=== PATIENT | male | born 1945 | race Caucasian/White ===

== ENCOUNTER 2023-09-28 23:28 | Inpatient (IN) | payer MEDICARE, OTHER ==
[2023-09-29] MEDS ORDERED: ONDANSETRON 4 MG/2 ML VIAL IVP PRN (02:25)
[2023-09-29] MEDS ORDERED: IPRATROPIUM 0.2 MG/ML NEB INH PRN (02:25)
[2023-09-29] MEDS ORDERED: ALBUTEROL NEB 2.5 MG/3 ML INH PRN (02:25)
[2023-09-29] MEDS ORDERED: ACETAMINOPHEN 325 MG TABLET PO PRN ×2 (02:25→11:50)
[2023-09-29] MEDS ORDERED: SODIUM CHLORIDE FLUSH 0.9% 10 ML SYRINGE IVP PRN (02:25)
[2023-09-29] MEDS: SODIUM CHLORIDE FLUSH 0.9% 10 ML SYRINGE IVP PRN ×2 (02:30→20:39)
[2023-09-29 02:50] LABS: BASOPHILS % (AUTO) 0.4 %; HCT - HEMATOCRIT 20.3 % (42.0-52.0); LYMPHOCYTES % (AUTO) 3.8 %; MEAN CORPUSCULAR HEMOGLOBIN 33.5 pg (27.0-31.0); MEAN CORPUSCULAR VOLUME 98.5 fL (80.0-94.0); MONOCYTES % (AUTO) 13.6 %; NEUTROPHILS % (AUTO) 80.1 %; RED BLOOD COUNT 2.06 10^6/uL (4.70-6.10); WHITE BLOOD COUNT 2.4 x10^3/uL (4.8-10.8)
[2023-09-29 02:54] LABS: HGB - HEMOGLOBIN 6.9 g/dL (14.0-18.0)
[2023-09-29 02:55] LABS: ABNORMAL LYMPHS % (MANUAL) 0 %; PLT - PLATELET COUNT 13 10^3/uL (130-450)
[2023-09-29 03:05] LABS: ALBUMIN 2.4 g/dL (3.2-5.5); BILIRUBIN,TOTAL 1.2 mg/dL (0.2-1.0); CALCIUM 8.1 mg/dL (8.5-10.3); CREATININE 0.9 mg/dL (0.6-1.3); MAGNESIUM 1.8 mg/dL (1.7-2.3); POTASSIUM 4.3 mmol/L (3.5-4.5); TOTAL PROTEIN 3.6 g/dL (6.4-8.9)
[2023-09-29 03:10] LABS: BAND NEUTROPHILS % (MANUAL) 11 %; LYMPHOCYTES # (MANUAL) 0.2 10^3/uL (1.5-3.5); LYMPHOCYTES % (MANUAL) 10 %; MONOCYTES # (MANUAL) 0.2 10^3/uL (0.0-1.0); NEUTROPHILS # (MANUAL) 1.9 10^3/uL (1.5-6.6)
[2023-09-29 03:11] LABS: DIFFERENTIAL COMMENT MANUAL DIFFERENTIAL; PLATELET ESTIMATE, MANUAL DECREASED (<130,000) (NORMAL)
--- NOTE | 2023-09-29 03:18 | PROVIDER PROGRESS NOTE ---
Tool And Die Inspector Note - Tool And Die Inspector Note Tool And Die Inspector Note: Admit Pending In brief, 78 yo M with history of MDS s/p BMT. Unfortunately I do not have access to his records for further information. [facility] requiring blood transfusion, Hgb 6.2. Repeat labs here show Hgb 6.9 - ordered 1 U PRBC leukoreduced/irradiated. He received IV vancomycin and IV cefepime at outside hospital, continue for now, follow up cultures. Gentle IV fluid hydration. Currently vital signs stable, on 2 L NC. Afebrile. Last Vital Signs Temp 36.7 C 09/29/23 03:00 Pulse 70 09/29/23 03:00 Resp 12 09/29/23 03:00 BP 122/69 09/29/23 03:00 Pulse Ox 93 09/29/23 03:00 O2 Flow Rate 2 09/29/23 03:00 Further details pending admit H&P.
[2023-09-29] MEDS ORDERED: VANCOMYCIN INJ 1.75 GM in SODIUM CHLORIDE 0.9% 500 ML IV SCH (04:00)
[2023-09-29 06:27] LABS: MAGNESIUM 1.7 mg/dL (1.7-2.3); PHOSPHORUS 4.1 mg/dL (2.5-5.0)
[2023-09-29 06:31] LABS: CALCIUM, IONIZED 1.13 mmol/L (1.15-1.33); VBG PH 7.461 (7.31-7.41)
[2023-09-29] MEDS: MAGNESIUM SULFATE 2 GRAM 2 GM/50 ML BAG IV ONE (07:02)
[2023-09-29] MEDS: CEFEPIME 2 GM in SODIUM CHLORIDE 0.9% MINIBAG 100 ML IV SCH (09:03)
[2023-09-29] MEDS: PANTOPRAZOLE 40 MG VIAL IVP SCH (09:03)
[2023-09-29] MEDS: SODIUM CHLORIDE FLUSH 0.9% 10 ML SYRINGE IVP SCH ×2 (10:14→18:52)
--- NOTE | 2023-09-29 12:45 | HISTORY & PHYSICAL EXAMINATION ---
Chief Complaint - Chief Complaint Chief Complaint: I need oxygen History of Present Illness - Admitted From Admitted From:: [facility] Emergency Department - History Obtained From Records Reviewed: [facility] ED documentation History obtained from: Patient Exam Limitations: None - History of Present Illness HPI Comment/Other: Mr. Cornelius is a 78 year old gentleman with history of prostate cancer (T1c, PSA 5.3, Lee Ann 3+3) along with MDS s/p BMT May 19, 2023 who presents with shortness of breath and hypoxia. He currently follows with Dr. Gustafson of [facility] in [place] for hematology/oncology and also follows closely with the [facility] after his bone marrow transplant. He ultimately underwent allo-BMT on May 19, 2023 for his progressive MDS. His posttransplant course was complicated by acute gut ejakz-emudop-dudx disease requiring high-dose prednisone and immunosuppression with Jakafi and cyclosporine. 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 Since undergoing his BMT, he has had ongoing issues with being transfusion dependent, along with chronic hypomagnesemia requiring intermittent magnesium infusions as an outpatient. On August 27 he also had an IgG level of 218 thus was given IVIG at that time. He does have chronic orthostasis requiring midodrine as well. He currently is on a prolonged prednisone taper for his acute gut GVHD, along with Jakafi and cyclosporine for immunosuppression. His current issue started recently when he was at his outpatient infusion center yesterday to receive an IV magnesium infusion. There he started to develop mild shortness of breath and was noted to be hypoxic in the 80s. Per documentation, a chest x-ray at the infusion center was concerning for fluid overload and he was given IV Lasix 20 mg. He required 3 L of oxygen to maintain saturation of 88 to 90%. There were plans to obtain home oxygen at that time however [place], home oxygen tanks and supplies were not deliverable. He was sent to the emergency department for further evaluation. At the [facility] Emergency Department in Thursday, he was noted to be afebrile with normal vital signs aside from requiring 3 to 4 L of oxygen to maintain appropriate saturations. His lactic acid was noted to be elevated to 4.6 and he was given IV fluids with improvement of his lactic acid to normal. His labs showed a creatinine of 1.47 with a CO2 of 17 and an anion gap of 16. His WBC was 2.6, hemoglobin 6.2, platelet count 12. His COVID, RSV and influenza testing were negative. A CT of his abdomen showed small pockets of fluid consistent with trace ascites but was not large enough for sampling. A CTA of his chest showed no evidence for pulmonary embolism and the lungs were clear bilaterally with a small left pleural effusion and trace right pleural effusion. Because of his lactic acidosis he was given empiric IV vancomycin and cefepime, though there was no obvious infectious source. As they were unable to secure home oxygen therapy [place] the [place], he was transferred to [facility] for further care and management. History - Past Medical History Cardiovascular: reports: Arrhythmia Respiratory: reports: Pneumonia, Sleep apnea Neuro: reports: None Endocrine/Autoimmune: reports: None GI: reports: Chronic diarrhea : reports: Benign prostate hypertrophy Psych: reports: None Musculoskeletal: reports: Osteoarthritis Derm: reports: None Other Past Medical History: cervical spinal stenosis, RAVIN, ED, hypomagnesemia - Past Surgical History General: reports: Colonoscopy - Family & Social History Family History: Other family: Hypertension - Substance History Use: Uses substance without health or social issues: NONE Meds/Allgy - Home Medications Home Medications: Ambulatory Orders Medication Instructions Recorded Confirmed Beclomethasone Dipropionate [Qvar 10.6 gm IH 09/29/23 Redihaler (40 mcg)] Budesonide [Budesonide EC] 3 mg PO 09/29/23 Ray Cit/Mag/D3/Zn/Fire Eater/Yuri/Bor 1 each PO 09/29/23 [Citracal-Vit D + Magnesium Tab] Cyclosporine, Modified 25 mg PO 09/29/23 [Cyclosporine Modified] Cyclosporine, Modified 100 mg PO 09/29/23 [Cyclosporine Modified] Dapsone 25 mg PO UD 09/29/23 09/29/23 Lipase/Protease/Amylase [Creon Dr 1 each PO PRN PRN 09/29/23 09/29/23 36,000 Units Capsule] Midodrine HCl 5 mg PO TID 09/29/23 09/29/23 Posaconazole [Noxafil] 300 mg PO UD 09/29/23 09/29/23 Ruxolitinib Phosphate [Jakafi] 10 mg PO BID 09/29/23 09/29/23 Ursodiol [Angelica] 1,000 mg PO UD 09/29/23 09/29/23 valACYclovir [Valtrex] 1,000 mg PO BID 09/29/23 09/29/23 - Allergies Allergies/Adverse Reactions: Allergies Allergy/AdvReac Type Severity Reaction Status Date / Time No Known Drug Allergies Allergy Verified 09/29/23 02:15 Review of Systems - Constitutional Constitutional: reports: Fatigue, Weakness, Weight loss - Eyes Eyes: denies: Blurred vision - Ears, Nose & Throat Ears, Nose & Throat: denies: Ear pain, Hearing loss - Cardiovascular Cariovascular: denies: Irregular heart rate, Palpitations, Chest pain, Syncope - Respiratory Respiratory: reports: SOB with exertion. denies: Cough, Wheezing, SOB at rest, Pleuritic pain - Gastrointestinal Gastrointestinal: reports: Diarrhea. denies: Abdominal pain, Bloody stools, Vomiting, Reflux/heartburn - Genitourinary Genitourinary: denies: Dysuria, Frequency - Musculoskeletal Musculoskeletal: denies: Muscle pain - Integumentary Integumentary: denies: Lesions - Neurological Neurological: denies: Focal weakness, Headache, Numbness - Psychiatric Psychiatric: denies: Suicidal, Hallucinations - Endocrine Endocrine: denies: Polyphagia - Hematologic/Lymphatic Hematologic/Lymphatic: reports: Anemia, Petechiae, Bleeding tendencies. denies: Blood clots Exam - Vital Signs Vital Signs: Vital Signs x48h Temp Pulse Resp BP Pulse Ox O2 Flow Rate 09/29/23 12:07 37.2 C 93 14 96/56 L 92 4 09/29/23 11:11 37.1 C 81 11 L 99/57 L 92 4 09/29/23 11:09 37.1 C 95 19 99/57 L 91 L 6 09/29/23 11:00 37.0 C 98 20 94/53 L 91 L 4 09/29/23 10:51 36.6 C 94 13 90/49 L 92 6 09/29/23 09:00 82 14 109/68 91 L 4 09/29/23 08:26 37.1 C 78 12 113/75 91 L 4 09/29/23 07:28 6 09/29/23 07:00 37.0 C 69 12 118/68 91 L 4 09/29/23 05:00 36.7 C 69 14 113/81 H 92 4 - Physical Exam General Appearance: positive: No acute distress, Alert, Other (Appears chronically ill and older than stated age, but no acute distress) Eyes Bilateral: positive: Normal inspection, PERRL, EOMI ENT: positive: ENT inspection nml, Pharynx nml, No signs of dehydration Neck: positive: Nml inspection, Thyroid nml, No JVD Respiratory: positive: Chest non-tender, No respiratory distress, Breath sounds nml. negative: Wheezes, Rales, Rhonchi Cardiovascular: positive: Regular rate & rhythm, No murmur, No gallop. negative: JVD present Peripheral Pulses: positive: 2+ Abdomen: positive: Non-tender, No organomegaly, Nml bowel sounds, No distention. negative: Tenderness, Guarding, Rebound Back: positive: Nml inspection. negative: CVA tenderness (R), CVA tenderness (L) Skin: positive: No rash, Warm, Dry, Pallor Extremities: positive: Non-tender, Full ROM, Other (3-4+ edema bilaterally) Neurologic/Psychiatric: positive: Oriented x3, CN's nml (2-12), Motor nml, Sensation nml Sepsis Event Note (H) - Evaluation Current Stage of Sepsis: Ruled out Conclusion/Plan - Problem List (1) Acute respiratory failure with hypoxia Conclusion/Plan: His hypoxia was first noted in the outpatient infusion center where he was receiving his chronic magnesium infusion. A chest x-ray at that time apparently showed findings concerning for pulmonary edema and he was given 20 mg of IV Lasix. I am unable to view these results or images. In the emergency department prior to transfer the CTA of the chest was negative for pulmonary embolism but also showed clear lungs aside from a trace right pleural effusion and small left pleural effusion. These effusions are likely not large enough to cause any significant hypoxia. There are no groundglass opacities on the CT scan that would be concerning for pneumonitis (infectious versus organizing p neumonia versus other interstitial disorders), making those less likely as a cause. He has no fevers or cough as well. He does have significant peripheral edema in his lower extremities as well as upper extremities, thus fluid related issues are certainly possible. He apparently had a normal echocardiogram in March 2023. -Continue supplemental oxygen. -Will place on 40 mg IV Lasix daily. -Obtain TTE to evaluate for any interval change since his bone marrow transplant. -Check blood cultures, procalcitonin, ESR, CRP, BNP. -Will reach out to his transplant team at the [facility] to determine next steps. (2) MDS (myelodysplastic syndrome) Conclusion/Plan: Initially started to develop anemia and thrombocytopenia in 2019 and ultimately underwent bone marrow biopsy in May 2022 which confirmed myelodysplastic syndrome. He was started on therapy (Vidaza) at that time but remained transfusion dependent and ultimately underwent allogenic bone marrow transplantation on 05/19/2023 through the [facility]. 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 He has remained transfusion dependent after the transplant likely due to ABO mismatch of patient blood with donor subtype, though this is favored to improve over time. -Current transfusion threshold per oncology is hematocrit less than 26% and platelet less than 10,000. -Received 1 unit of PRBC this morning due to hemoglobin of 6.2 in the emergency department and hemoglobin 6.9 here. -Typically receives 20mg IV lasix with each unit of PRBC transfusion. -No signs of active bleeding at this time. -Will resume his home prednisone, Jakafi and cyclosporine. 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 -His current anemia appears to be his baseline. I am unclear what his baseline thrombocytopenia typically looks like. -Transfuse for hemoglobin less than 26% or platelet count less than 10,000. -Repeat CBC after blood transfusion. 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 In June 2023 he developed with anorexia, weight loss and diarrhea and ultimately underwent EGD with biopsy showing moderate to severe dyvdh-xcgply-otwc disease in the duodenum and severe sobpu-ipmxcu-mpqy disease in the stomach and colon. He was placed hide dose steroid therapy without significant improvement and he required addition of both Jakafi and cyclosporine. He is currently now on a prednisone taper after improving with therapy. -Resume home Jakafi 10 mg twice daily along with cyclosporine. He is also on ursodiol for biliary support. -Continue prednisone. 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 -Resume pancrelipase supplementation with meals. (6) Bone marrow replaced by transplant Conclusion/Plan: Please see documentation noted above regarding his MDS, ufazx-pmkunu-exdm disease and pancytopenia. (7) Prostate cancer Conclusion/Plan: Has a history of BPH with urinary obstruction and previously on Flomax but this was held in the setting of orthostasis and hypotension. He also has a history of prostate cancer (T1c, PSA 5.3, Lee Ann 3+3) and he has opted for active surveillance. -Monitor for urinary retention but otherwise no acute issues at this time. (8) Hypomagnesemia Conclusion/Plan: Currently requires intermittent outpatient infusions of magnesium. -Check magnesium level and supplement if necessary. -Has been avoiding oral magnesium supplementation due to oral supplements causing diarrhea, which would worsen his gut GVHD. (9) Hypogammaglobulinemia Conclusion/Plan: Was noted to have an IgG level of 218 on August 28, 2023 and underwent IVIG infusion at the time. -No acute issues at this time. (10) Orthostasis Conclusion/Plan: Currently on midodrine therapy for intermittent orthostasis. -Resume oral midodrine. (11) RAVIN (obstructive sleep apnea) Conclusion/Plan: Has been recommended to use CPAP in the past however he does not use this currently as he typically sleeps on his side which decreases his sleep apnea. -Monitor for now. (12) Cervical spinal stenosis Conclusion/Plan: Occasionally gets paresthesias to his right shoulder. -No acute issues at this time. - Lab Results Fish Bones: 09/29/23 02:40 09/29/23 02:40 - Diagnostic Imaging Results Diagnostic Imaging Results: positive: Final report reviewed Diagnostic Imaging Results Comments: CTA Chest: 1. No evidence of pulmonary embolism bilaterally. 2. The lungs are clear bilaterally. Small left pleural effusion and trace right pleural effusion are present. 3. Small volume ascites is present in the upper abdomen. CT Abdomen/Pelvis w/o Contrast: 1. Small pockets of fluid are present adjacent to the liver, spleen, and deep within the pelvis. The small volumes of fluid are likely inaccessible to paracentesis. 2. A small left pleural effusion is present. 3. The prostate measures up to 5.4 cm in size. ECG: per my read - NSR, HR 70, normal axis and intervals, no pathologic Q-waves, no ischemic ST-TW changes, occasional PVCs. Core Measures - DVT/VTE - Prophylaxis VTE/DVT Device ordered at admit?: Yes VTE/DVT Prophylaxis med ordered at admit?: No Not Ordered - Medical Reason: Contraindicated
[2023-09-29] MEDS: LIPASE/PROTEASE/AMYLASE CAPSULE PO SCH (15:18)
[2023-09-29] MEDS: MIDODRINE 2.5 MG TABLET PO SCH (15:39)
[2023-09-29] MEDS: FUROSEMIDE 40 MG/4 ML VIAL IVP SCH (15:39)
[2023-09-29 16:04] LABS: PT - PROTHROMBIN TIME 11.3 secs (9.9-12.6)
[2023-09-29 16:05] LABS: MAGNESIUM 1.9 mg/dL (1.7-2.3)
[2023-09-29 16:11] LABS: ALBUMIN 2.6 g/dL (3.2-5.5); ALBUMIN/GLOBULIN RATIO 2.2 (1.0-2.2); BILIRUBIN,TOTAL 1.2 mg/dL (0.2-1.0); CALCIUM 8.2 mg/dL (8.5-10.3); CREATININE 1.2 mg/dL (0.6-1.3); CRP - C-REACTIVE PROTEIN 3.3 mg/dL (<0.5); PHOSPHORUS 3.5 mg/dL (2.5-5.0); POTASSIUM 3.6 mmol/L (3.5-4.5); TOTAL PROTEIN 3.8 g/dL (6.4-8.9)
[2023-09-29 16:19] LABS: PROCALCITONIN 0.54 ng/mL (<0.5)
--- NOTE | 2023-09-29 16:36 | PHARMACY PROGRESS NOTE ---
- Best Possible Medication History Admit Date and Time: 09/29/23 0041 Processed by: Pharmacy (Medication Reconciliation completed with insurance records, patient interview by [employer] Funder, Rebekah, and with paperwork from [facility] verified by pharmacist.) Medications reviewed in ED?: No Medication History completed: Yes Patient Interview: Completed Secondary Source(s): Physician records, Pharmacy records, Insurance records As the person ultimately responsible for medication therapy, providers are able to order a medication from an existing home medication list in [facility] via the "Reconcile Routine" prior to Confirmation of that medication by phlebotomy support tech. Such practice is discouraged except when the physician, in their clinical judgment, deems that a medical need exists for a medication without regard to previous use.
[2023-09-29] MEDS: valACYclovir 500 MG TABLET PO SCH (20:39)
[2023-09-29] MEDS: BUDESONIDE 3MG CAPSULES PO SCH (20:50)
[2023-09-29] MEDS: CYCLOSPORINE 125 MG PO SCH (20:51)
[2023-09-29] MEDS: VANCOMYCIN INJ 1.25 GM in SODIUM CHLORIDE 0.9% 250 ML IV SCH (21:16)
[2023-09-30 05:26] LABS: BASOPHILS % (AUTO) 0.3 %; EOSINOPHILS % (AUTO) 0.6 %; HCT - HEMATOCRIT 21.3 % (42.0-52.0); HGB - HEMOGLOBIN 7.3 g/dL (14.0-18.0); LYMPHOCYTES # (AUTO) 0.1 10^3/uL (1.5-3.5); LYMPHOCYTES % (AUTO) 2.6 %; MEAN CORPUSCULAR HEMOGLOBIN 32.7 pg (27.0-31.0); MEAN CORPUSCULAR HGB CONC 34.3 g/dL (32.0-36.0); MEAN CORPUSCULAR VOLUME 95.5 fL (80.0-94.0); MONOCYTES # (AUTO) 0.3 10^3/uL (0.0-1.0); MONOCYTES % (AUTO) 8.3 %; NEUTROPHILS % (AUTO) 86.8 %; NRBC ABSOLUTE COUNT (AUTO) 0.16 x10^3/uL; NUCLEATED RED BLOOD CELLS AUTO 4.6 /100WBC; RED BLOOD COUNT 2.23 10^6/uL (4.70-6.10); RED CELL DISTRIBUTION WIDTH 22.1 % (12.0-15.0); WHITE BLOOD COUNT 3.5 x10^3/uL (4.8-10.8)
[2023-09-30 05:30] LABS: CALCIUM, IONIZED 1.1 mmol/L (1.15-1.33); VBG PH 7.464 (7.31-7.41)
[2023-09-30 05:34] LABS: PLT - PLATELET COUNT 11 10^3/uL (130-450)
[2023-09-30 05:43] LABS: CALCIUM 7.7 mg/dL (8.5-10.3); MAGNESIUM 1.6 mg/dL (1.7-2.3); PHOSPHORUS 2.8 mg/dL (2.5-5.0); POTASSIUM 3.2 mmol/L (3.5-4.5)
[2023-09-30 05:48] LABS: SLIDE REVIEW? Indicated
[2023-09-30 05:50] LABS: PLATELET ESTIMATE, MANUAL DECREASED (<130,000) (NORMAL)
[2023-09-30] MEDS: MAGNESIUM OXIDE 400 MG TABLET PO ONE (06:41)
[2023-09-30] MEDS: PANTOPRAZOLE 40 MG TABLET PO SCH (06:42)
[2023-09-30] MEDS: CALCIUM CARBONATE CHEW 500 MG TABLET PO SCH (06:42)
[2023-09-30] MEDS: MAGNESIUM SULFATE 2 GRAM 2 GM/50 ML BAG IV ONE (07:08)
[2023-09-30] MEDS: MAGNESIUM SULFATE 1 GM in SODIUM CHLORIDE 0.9% 50 ML IV ONE (08:28)
[2023-09-30] MEDS: POTASSIUM CHLORIDE 20 MEQ TABLET PO SCH ×2 (08:29→16:19)
[2023-09-30] MEDS: MULTIVITAMIN TABLET PO SCH (08:29)
[2023-09-30] MEDS: CHOLECALCIFEROL 25 MCG TABLET PO SCH (08:30)
[2023-09-30] MEDS: predniSONE 5 MG TABLET PO SCH (08:30)
[2023-09-30] MEDS: POTASSIUM CHLORIDE 20 MEQ TABLET PO ONE (09:27)
[2023-09-30] MEDS: POSACONAZOLE 300 MG PO SCH (09:35)
[2023-09-30] MEDS: JAKAFI 5 MG PO SCH (09:35)
--- NOTE | 2023-09-30 12:20 | PROVIDER PROGRESS NOTE ---
Subjective - Prog Note Date Prog Note Date: 09/30/23 Prog Note Time: 12:18 - Subjective Pt reports feeling: Improved Subjective: No acute events overnight. Was weaned from 6 L OxyMask initially down to room air, but with minimal exertion he desaturated to 86% and needed 2 L of oxygen. Attempts to ambulate him in the room indicated that he became very weak and unable to ambulate further after approximately 9 steps. Denies any chest pain and he denies any dyspnea, orthopnea, PND, cough, sputum production, hemoptysis, nausea, vomiting or diarrhea. He diuresed over 3 L with the 40 mg IV Lasix dose. Remains afebrile. Objective - Vital Signs/Intake & Output Reviewed Vital Signs: Yes Vital Signs: Vital Signs x48h Temp Pulse Resp BP Pulse Ox O2 Flow Rate 09/30/23 11:00 36.8 C 80 16 115/78 94 4 09/30/23 10:04 100 15 107/65 92 09/30/23 09:00 36.8 C 85 19 120/61 93 1 09/30/23 08:03 37.1 C 79 14 119/64 92 3 09/30/23 07:53 6 09/30/23 07:00 37.3 C 83 16 119/64 92 6 09/30/23 05:00 37.5 C 77 12 96/52 L 93 6 Intake & Output: Intake & Output 09/27/23 09/28/23 09/29/23 09/30/23 23:59 23:59 23:59 23:59 Intake Total 650 660 Output Total 3030 2340 Balance -0718 -1930 - Objective General Appearance: positive: Alert, Other (Appears chronically ill and older than stated age but no acute distress) Eyes Bilateral: positive: Normal inspection, PERRL, EOMI ENT: positive: ENT inspection nml, Pharynx nml, No signs of dehydration Neck: positive: Nml inspection, Thyroid nml, No JVD, Trachea midline Respiratory: positive: Chest non-tender, No respiratory distress, Breath sounds nml, Rales (Subtle inspiratory crackles in bilateral lower lobes). negative: Wheezes, Rhonchi Cardiovascular: positive: Regular rate & rhythm, No murmur, No gallop Abdomen: positive: Non-tender, No organomegaly, Nml bowel sounds, No distention Back: positive: Nml inspection Skin: positive: No rash, Warm, Dry, Pallor Extremities: positive: Non-tender, Pedal edema (Has 3-4 pitting edema in lower extremities and 2-3 pitting edema in proximal upper extremities bilaterally) Neurologic/Psychiatric: positive: Oriented x3, CN's nml (2-12), Motor nml, Sen sation nml - Lab Results Fish Bones: 09/30/23 05:15 09/30/23 05:15 Other Labs: Lab Results x24hrs 09/30/23 09/30/23 09/30/23 Range/Units 05:15 05:15 05:15 WBC 3.5 L (4.8-10.8) x10^3/uL RBC 2.23 L (4.70-6.10) 10^6/uL Hgb 7.3 L (14.0-18.0) g/dL Hct 21.3 L (42.0-52.0) % MCV 95.5 H (80.0-94.0) fL MCH 32.7 H (27.0-31.0) pg MCHC 34.3 (32.0-36.0) g/dL RDW 22.1 H (12.0-15.0) % Plt Count 11 L* (130-450) 10^3/uL Neut # (Auto) 3.0 (1.5-6.6) 10^3/uL Lymph # (Auto) 0.1 L (1.5-3.5) 10^3/uL Orange # (Auto) 0.3 (0.0-1.0) 10^3/uL Eos # (Auto) 0.0 (0.0-0.7) 10^3/uL Baso # (Auto) 0.0 (0.0-0.1) 10^3/uL Absolute Nucleated RBC 0.16 x10^3/uL Nucleated RBC % 4.6 /100WBC Manual Slide Review Indicated Platelet Estimate DECREASED (<130,000) (NORMAL) RBC Morph Micro Appear 2+ HYPOCHROMASIA (NORMAL) ESR (0-20) mm/Hr PT (9.9-12.6) secs INR (0.8-1.2) VBG pH 7.464 H (7.31-7.41) Ionized Calcium 1.10 L (1.15-1.33) mmol/L Sodium 139 (135-145) mmol/L Potassium 3.2 L (3.5-4.5) mmol/L Chloride 110 (101-111) mmol/L Carbon Dioxide 26 (21-32) mmol/L Anion Gap 3.0 L (6-13) BUN 26 H (6-20) mg/dL Creatinine 1.0 (0.6-1.3) mg/dL Estimated GFR (MDRD) 72 L (>89) Glucose 150 H (74-104) mg/dL Calcium 7.7 L (8.5-10.3) mg/dL Phosphorus 2.8 (2.5-5.0) mg/dL Magnesium 1.6 L (1.7-2.3) mg/dL Total Bilirubin (0.2-1.0) mg/dL AST (10-42) IU/L ALT (10-60) IU/L Alkaline Phosphatase (42-121) IU/L Troponin I High Sens (2.3-19.7) ng/L C-Reactive Protein (<0.5) mg/dL B-Natriuretic Peptide (5-100) pg/mL Total Protein (6.4-8.9) g/dL Albumin (3.2-5.5) g/dL Globulin (2.1-4.2) g/dL Albumin/Globulin Ratio (1.0-2.2) Procalcitonin Immunoas (<0.5) ng/mL Blood Type Crossmatch IS Only 09/29/23 09/29/23 09/29/23 Range/Units 15:25 15:25 15:25 WBC (4.8-10.8) x10^3/uL RBC (4.70-6.10) 10^6/uL Hgb (14.0-18.0) g/dL Hct (42.0-52.0) % MCV (80.0-94.0) fL MCH (27.0-31.0) pg MCHC (32.0-36.0) g/dL RDW (12.0-15.0) % Plt Count (130-450) 10^3/uL Neut # (Auto) (1.5-6.6) 10^3/uL Lymph # (Auto) (1.5-3.5) 10^3/uL Orange # (Auto) (0.0-1.0) 10^3/uL Eos # (Auto) (0.0-0.7) 10^3/uL Baso # (Auto) (0.0-0.1) 10^3/uL Absolute Nucleated RBC x10^3/uL Nucleated RBC % /100WBC Manual Slide Review Platelet Estimate (NORMAL) RBC Morph Micro Appear (NORMAL) ESR (0-20) mm/Hr PT (9.9-12.6) secs INR (0.8-1.2) VBG pH (7.31-7.41) Ionized Calcium (1.15-1.33) mmol/L Sodium 138 (135-145) mmol/L Potassium 3.6 (3.5-4.5) mmol/L Chloride 110 (101-111) mmol/L Carbon Dioxide 23 (21-32) mmol/L Anion Gap 5.0 L (6-13) BUN 28 H (6-20) mg/dL Creatinine 1.2 (0.6-1.3) mg/dL Estimated GFR (MDRD) 59 L (>89) Glucose 143 H (74-104) mg/dL Calcium 8.2 L (8.5-10.3) mg/dL Phosphorus 3.5 (2.5-5.0) mg/dL Magnesium 1.9 (1.7-2.3) mg/dL Total Bilirubin 1.2 H (0.2-1.0) mg/dL AST 10 (10-42) IU/L ALT 16 (10-60) IU/L Alkaline Phosphatase 63 (42-121) IU/L Troponin I High Sens 39.9 H* (2.3-19.7) ng/L C-Reactive Protein 3.3 H (<0.5) mg/dL B-Natriuretic Peptide 465 H (5-100) pg/mL Total Protein 3.8 L (6.4-8.9) g/dL Albumin 2.6 L (3.2-5.5) g/dL Globulin 1.2 L (2.1-4.2) g/dL Albumin/Globulin Ratio 2.2 (1.0-2.2) Procalcitonin Immunoas 0.54 H (<0.5) ng/mL Blood Type Crossmatch IS Only 09/29/23 09/29/23 09/29/23 Range/Units 15:25 15:25 02:40 WBC (4.8-10.8) x10^3/uL RBC (4.70-6.10) 10^6/uL Hgb (14.0-18.0) g/dL Hct (42.0-52.0) % MCV (80.0-94.0) fL MCH (27.0-31.0) pg MCHC (32.0-36.0) g/dL RDW (12.0-15.0) % Plt Count (130-450) 10^3/uL Neut # (Auto) (1.5-6.6) 10^3/uL Lymph # (Auto) (1.5-3.5) 10^3/uL Orange # (Auto) (0.0-1.0) 10^3/uL Eos # (Auto) (0.0-0.7) 10^3/uL Baso # (Auto) (0.0-0.1) 10^3/uL Absolute Nucleated RBC x10^3/uL Nucleated RBC % /100WBC Manual Slide Review Platelet Estimate (NORMAL) RBC Morph Micro Appear (NORMAL) ESR 25 H (0-20) mm/Hr PT 11.3 (9.9-12.6) secs INR 1.0 (0.8-1.2) VBG pH (7.31-7.41) Ionized Calcium (1.15-1.33) mmol/L Sodium (135-145) mmol/L Potassium (3.5-4.5) mmol/L Chloride (101-111) mmol/L Carbon Dioxide (21-32) mmol/L Anion Gap (6-13) BUN (6-20) mg/dL Creatinine (0.6-1.3) mg/dL Estimated GFR (MDRD) (>89) Glucose (74-104) mg/dL Calcium (8.5-10.3) mg/dL Phosphorus (2.5-5.0) mg/dL Magnesium (1.7-2.3) mg/dL Total Bilirubin (0.2-1.0) mg/dL AST (10-42) IU/L ALT (10-60) IU/L Alkaline Phosphatase (42-121) IU/L Troponin I High Sens (2.3-19.7) ng/L C-Reactive Protein (<0.5) mg/dL B-Natriuretic Peptide (5-100) pg/mL Total Protein (6.4-8.9) g/dL Albumin (3.2-5.5) g/dL Globulin (2.1-4.2) g/dL Albumin/Globulin Ratio (1.0-2.2) Procalcitonin Immunoas (<0.5) ng/mL Blood Type O POSITIVE Crossmatch IS Only See Detail - Diagnostic Imaging Diagnostic Imaging Results: positive: Final report reviewed Diagnostic Imaging Comments: CTA Chest (09/28/23): 1. No evidence of pulmonary embolism bilaterally. 2. The lungs are clear bilaterally. Small left pleural effusion and trace right pleural effusion are present. 3. Small volume ascites is present in the upper abdomen. CT Abdomen/Pelvis w/o Contrast (09/28/23): 1. Small pockets of fluid are present adjacent to the liver, spleen, and deep within the pelvis. The small volumes of fluid are likely inaccessible to paracentesis. 2. A small left pleural effusion is present. 3. The prostate measures up to 5.4 cm in size. ECG: per my read - NSR, HR 70, normal axis and intervals, no pathologic Q-waves, no ischemic ST-TW changes, occasional PVCs. NEW STUDIES: Echocardiogram (09/29/23): 1. Normal left ventricular size and function, EF 50%. The left atrium is not well-seen. 2. Normal right ventricular size and function. Normal pulmonary pressure with RVSP 27 mmHg. 3. Mild mitral annular calcification with normal valve function throughout. 4. A PFO is suspected based on positive bubble study. Sepsis Event Note (H) - Evaluation Current Stage of Sepsis: Ruled out Assessment/Plan - Problem List (1) Acute respiratory failure with hypoxia Impression: His hypoxia was first noted in the outpatient infusion center where he was receiving his chronic magnesium infusion. A chest x-ray at that time apparently showed findings concerning for pulmonary edema and he was given 20 mg of IV Lasix. I am unable to view these results or images. In the emergency department prior to transfer (in [place], [place]) the CTA of the chest was negative for pulmonary embolism and showed clear lungs aside from a trace right pleural effusion and small left pleural effusion. These effusions are likely not large enough to cause any significant hypoxia. There are no groundglass opacities on the CT scan that would be concerning for pneumonitis (infectious versus organizing pneumonia versus other interstitial disorders), making those less likely as a cause. He has no fevers or cough as well. He does have significant peripheral edema in his lower extremities as well as upper extremities, thus fluid related issues are the most likely cause. He apparently had a normal echocardiogram in March 2023. -Continue supplemental oxygen, wean as tolerated. Tried to wean to room air this morning, but desaturated to 86%. -Will continue 40 mg IV Lasix daily. -TTE showed normal LVEF and valvular function. He had evidence of a PFO, but the report did not indicate how severe. Given his RVSP is normal at 27 mmHg, I do not suspect significant right to left shunting. -BNP elevated to 465. ESR slightly high at 25. Procalcitonin minimally elevated at 0.54. -Overall his presentation appears most consistent with volume overload; treat as noted below. Will discontinue IV Vancomycin and Cefepime given lack of infectious issues at this time. -Will reach out to [facility] ([phone]) to give them an update. -Overall plan at this time is to try to set up home oxygen, PT/OT evaluation to determine safe [place] (2) Acute diastolic congestive heart failure Impression: He denied having any issues with heart failure in the past and an echocardiogram in March 2023 showed a normal LVEF per written records obtained. He does note that for the past several months he has had worsening issues with fluid retention in his lower extremities as well as more recently in his upper extremities. He is not certain whether he has been gaining weight or stand the same. He denies any orthopnea or PND however. -TTE here showed an LVEF of 50% without any significant valvular pathology. He does have a PFO but given his normal right-sided pressures (RVSP 27 mmHg), it is unlikely that he has a significant right to left shunt. -Continue 40 mg IV Lasix daily. Diuresed over 3 L yesterday. -Incentive spirometry. -Low-sodium diet and fluid restriction. Monitor daily weights and I&O's. (3) MDS (myelodysplastic syndrome) Impression: Initially started to develop anemia and thrombocytopenia in 2019 and ultimately underwent bone marrow biopsy in May 2022 which confirmed myelodysplastic syndrome. 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 He has remained transfusion dependent after the transplant likely due to ABO mismatch of patient blood with donor subtype, though this is favored to improve over time. -Transfuse for hemoglobin < 7 and platelet < 10,000. -Received 1 unit of PRBC on 09/29/23 due to hemoglobin of 6.2 in the emergency department and hemoglobin 6.9 here. -Typically receives 20mg IV lasix with each unit of PRBC transfusion. -No signs of active bleeding at this time. -Main problem currently is lack of his home immunosuppressant medications. His Jakafi, Cyclosporine and prophylactic [place] -[place] that we can resume his Cyclosporine, Jakafi and prophylactic medications. -Resume Prednisone on his outpatient taper schedule (entered into the APR). 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 -His current anemia appears to be his baseline. I am unclear what his baseline thrombocytopenia typically looks like. -Transfuse for hemoglobin less than 7 or platelet count less than 10,000. -Daily CBC. 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 In June 2023 he developed with anorexia, weight loss and diarrhea and ultimately underwent EGD with biopsy showing moderate to severe tcrvw-bfbsqo-[id number] disease in the duodenum and severe hxeus-azhfsm-[id number] disease in the stomach and colon. He was placed hide dose steroid therapy without significant improvement and he required addition of both Jakafi and cyclosporine. He is currently now on a prednisone taper after improving with therapy. -Continue prednisone on his outpatient taper. Also takes ursodiol for biliary support, will continue while hospitalized. -As noted above, we are trying to coordinate delivery of his home Jakafi and Cyclosporine, along with prophylactic medications, in order to resume while hospitalized. 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 -Resume pancrelipase supplementation with meals. (7) Bone marrow replaced by transplant Impression: Please see documentation noted above regarding his MDS, lyaeq-bttysa-[id number] disease and pancytopenia. (8) Prostate cancer Impression: Has a history of BPH with urinary obstruction and previously on Flomax but this was held in the setting of orthostasis and hypotension. He also has a history of prostate cancer (T1c, PSA 5.3, [place] 3+3) and he has opted for active juliana veillance. -Monitor for urinary retention but otherwise no acute issues at this time. (9) Hypomagnesemia Impression: Currently requires intermittent outpatient infusions of magnesium. -Check magnesium level daily and supplement if necessary. -Has been avoiding oral magnesium supplementation due to oral supplements causing diarrhea, which would worsen his gut GVHD. 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 -No acute issues at this time. (11) Orthostasis Impression: Currently on midodrine therapy for intermittent orthostasis. -Resume oral midodrine. (12) RAVIN (obstructive sleep apnea) Impression: Has been recommended to use CPAP in the past however he does not use this currently as he typically sleeps on his side which decreases his sleep apnea. -Monitor for now. (13) Cervical spinal stenosis Impression: Occasionally gets paresthesias to his right shoulder. -No acute issues at this time.
[2023-09-30 14:09] LABS: POTASSIUM 3.4 mmol/L (3.5-4.5)
--- NOTE | 2023-09-30 15:11 | XRAY Report ---
PROCEDURE: Chest 2V INDICATIONS: Hypoxia, evaluate for pathology TECHNIQUE: 2 views of the chest were acquired. COMPARISON: None. FINDINGS: Surgical changes and devices: Right chest wall dual lumen catheter tips project over the cavoatrial junction. Lungs and pleura: Small, loculated left-sided pleural effusion. Mediastinum: Mediastinal contours appear normal. Heart size is normal. Bones and chest wall: No suspicious bony lesions. Overlying soft tissues appear unremarkable. IMPRESSION: Small, loculated left-sided pleural effusion. Reviewed by: Anjel Rueda MD on 09/30/2023 3:10 PM PDT Approved by: Anjel Rueda MD on 09/30/2023 3:10 PM PDT Station ID: [id number]
[2023-10-01 05:58] LABS: EOSINOPHILS % (AUTO) 0.4 %; HCT - HEMATOCRIT 20.3 % (42.0-52.0); LYMPHOCYTES % (AUTO) 2.6 %; MEAN CORPUSCULAR HEMOGLOBIN 31.6 pg (27.0-31.0); MEAN CORPUSCULAR VOLUME 95.8 fL (80.0-94.0); MONOCYTES % (AUTO) 17.2 %; NEUTROPHILS % (AUTO) 77.7 %; RED BLOOD COUNT 2.12 10^6/uL (4.70-6.10); RED CELL DISTRIBUTION WIDTH 22.5 % (12.0-15.0); WHITE BLOOD COUNT 2.3 x10^3/uL (4.8-10.8)
[2023-10-01 06:00] LABS: HGB - HEMOGLOBIN 6.7 g/dL (14.0-18.0); PLT - PLATELET COUNT 11 10^3/uL (130-450)
[2023-10-01 06:02] LABS: ABNORMAL LYMPHS % (MANUAL) 0 %
[2023-10-01 06:05] LABS: CALCIUM, IONIZED 1.15 mmol/L (1.15-1.33); VBG PH 7.452 (7.31-7.41)
[2023-10-01 06:53] LABS: BAND NEUTROPHILS % (MANUAL) 3 %; LYMPHOCYTES # (MANUAL) 0.2 10^3/uL (1.5-3.5); LYMPHOCYTES % (MANUAL) 10 %; MONOCYTES # (MANUAL) 0.2 10^3/uL (0.0-1.0); NEUTROPHILS # (MANUAL) 1.9 10^3/uL (1.5-6.6)
[2023-10-01 06:54] LABS: DIFFERENTIAL COMMENT MANUAL DIFFERENTIAL; PLATELET ESTIMATE, MANUAL DECREASED (<130,000) (NORMAL)
[2023-10-01 07:56] LABS: MAGNESIUM 1.7 mg/dL (1.7-2.3)
[2023-10-01 07:59] LABS: ALBUMIN 2.1 g/dL (3.2-5.5); ALBUMIN/GLOBULIN RATIO 1.9 (1.0-2.2); BILIRUBIN,TOTAL 0.6 mg/dL (0.2-1.0); CALCIUM 7.9 mg/dL (8.5-10.3); CREATININE 0.8 mg/dL (0.6-1.3); POTASSIUM 4.2 mmol/L (3.5-4.5); TOTAL PROTEIN 3.2 g/dL (6.4-8.9)
--- NOTE | 2023-10-01 09:20 | PROVIDER PROGRESS NOTE ---
Subjective - Prog Note Date Prog Note Date: 10/01/23 Prog Note Time: 09:18 - Subjective Pt reports feeling: Improved Subjective: No acute events overnight. A family friend was able to bring his home immunosuppressant medications last evening, with his first doses taken last night. This morning he reports feeling better that he is taking his home medications. He denies any dyspnea though has remained on 1 to 2 L at rest and 3 to 4 L of oxygen with exertion. Denies any bleeding complications however his hemoglobin was 6.7 this morning. He is interested in going home however hoping for discharge tomorrow given [place] Remains afebrile. Objective - Vital Signs/Intake & Output Reviewed Vital Signs: Yes Vital Signs: Vital Signs x48h Temp Pulse Resp BP Pulse Ox O2 Flow Rate 10/01/23 09:15 37.2 C 82 16 127/70 95 1 10/01/23 09:00 37.1 C 81 12 121/69 93 1 10/01/23 07:00 37.2 C 96 23 120/69 94 1 10/01/23 05:00 37.2 C 95 15 107/56 L 94 1 10/01/23 03:00 36.7 C 95 24 103/62 94 1 Intake & Output: Intake & Output 09/28/23 09/29/23 09/30/23 10/01/23 23:59 23:59 23:59 23:59 Intake Total 650 1440 300 Output Total 3030 3120 510 Balance -9296 -9510 -210 - Objective General Appearance: positive: No acute distress, Alert, Mild distress, Other (Appears chronically ill but no active distress) Eyes Bilateral: positive: Normal inspection, PERRL, EOMI ENT: positive: ENT inspection nml, Pharynx nml, No signs of dehydration Neck: positive: Nml inspection, Thyroid nml, No JVD, Trachea midline Respiratory: positive: Chest non-tender, No respiratory distress, Rales (Subtle inspiratory crackles in both lower lobes). negative: Wheezes, Rhonchi Abdomen: positive: Non-tender, No organomegaly, Nml bowel sounds, No distention Back: positive: Nml inspection Skin: positive: No rash, Warm, Dry, Pallor Extremities: positive: Non-tender, Pedal edema (Has 3-4 pedal edema bilaterally and 2-3 pitting edema in proximal upper extremities bilaterally) Neurologic/Psychiatric: positive: Oriented x3, CN's nml (2-12), Motor nml, Sensation nml - Lab Results Fish Bones: 10/01/23 04:38 10/01/23 04:38 Other Labs: Lab Results x24hrs 10/01/23 10/01/23 10/01/23 Range/Units 07:36 04:38 04:38 WBC 2.3 L (4.8-10.8) x10^3/uL RBC 2.12 L (4.70-6.10) 10^6/uL Hgb 6.7 L* (14.0-18.0) g/dL Hct 20.3 L (42.0-52.0) % MCV 95.8 H (80.0-94.0) fL MCH 31.6 H (27.0-31.0) pg MCHC 33.0 (32.0-36.0) g/dL RDW 22.5 H (12.0-15.0) % Plt Count 11 L* (130-450) 10^3/uL Neut # (Auto) Not Reportable Lymph # (Auto) Not Reportable [place] # (Auto) Not Reportable Eos # (Auto) Not Reportable Baso # (Auto) Not Reportable Absolute Nucleated RBC Not Reportable Total Counted 100 Band Neuts % (Manual) 3 (0 - 10) % Abnorm Lymph % (Manual) 0 % Nucleated RBC % Not Reportable Neutrophils # (Manual) 1.9 (1.5-6.6) 10^3/uL Lymphocytes # (Manual) 0.2 L (1.5-3.5) 10^3/uL Monocytes # (Manual) 0.2 (0.0-1.0) 10^3/uL Eosinophils # (Manual) 0.0 (0-0.7) 10^3/uL Basophils # (Manual) 0.0 (0-0.1) 10^3/uL Differential Comment MANUAL DIFFERENTIAL Platelet Estimate DECREASED (<130,000) (NORMAL) RBC Morph Micro Appear 1+ OVALOCYTES (NORMAL) VBG pH 7.452 H (7.31-7.41) Ionized Calcium 1.15 (1.15-1.33) mmol/L Sodium 139 (135-145) mmol/L Potassium 4.2 (3.5-4.5) mmol/L Chloride 111 (101-111) mmol/L Carbon Dioxide 26 (21-32) mmol/L Anion Gap 2.0 L (6-13) BUN 24 H (6-20) mg/dL Creatinine 0.8 (0.6-1.3) mg/dL Estimated GFR (MDRD) 94 (>89) Glucose 152 H (74-104) mg/dL Calcium 7.9 L (8.5-10.3) mg/dL Phosphorus 2.0 L (2.5-5.0) mg/dL Magnesium 1.7 (1.7-2.3) mg/dL Total Bilirubin 0.6 (0.2-1.0) mg/dL AST 8 L (10-42) IU/L ALT 10 (10-60) IU/L Alkaline Phosphatase 47 (42-121) IU/L Total Protein 3.2 L (6.4-8.9) g/dL Albumin 2.1 L (3.2-5.5) g/dL Globulin 1.1 L (2.1-4.2) g/dL Albumin/Globulin Ratio 1.9 (1.0-2.2) Blood Type Antibody Screen Crossmatch IS Only 09/30/23 09/30/23 09/29/23 Range/Units 23:01 13:40 02:40 WBC (4.8-10.8) x10^3/uL RBC (4.70-6.10) 10^6/uL Hgb (14.0-18.0) g/dL Hct (42.0-52.0) % MCV (80.0-94.0) fL MCH (27.0-31.0) pg MCHC (32.0-36.0) g/dL RDW (12.0-15.0) % Plt Count (130-450) 10^3/uL Neut # (Auto) Lymph # (Auto) [place] # (Auto) Eos # (Auto) Baso # (Auto) Absolute Nucleated RBC Total Counted Band Neuts % (Manual) (0 - 10) % Abnorm Lymph % (Manual) % Nucleated RBC % Neutrophils # (Manual) (1.5-6.6) 10^3/uL Lymphocytes # (Manual) (1.5-3.5) 10^3/uL Monocytes # (Manual) (0.0-1.0) 10^3/uL Eosinophils # (Manual) (0-0.7) 10^3/uL Basophils # (Manual) (0-0.1) 10^3/uL Differential Comment Platelet Estimate (NORMAL) RBC Morph Micro Appear (NORMAL) VBG pH (7.31-7.41) Ionized Calcium (1.15-1.33) mmol/L Sodium (135-145) mmol/L Potassium 4.1 3.4 L (3.5-4.5) mmol/L Chloride (101-111) mmol/L Carbon Dioxide (21-32) mmol/L Anion Gap (6-13) BUN (6-20) mg/dL Creatinine (0.6-1.3) mg/dL Estimated GFR (MDRD) (>89) Glucose (74-104) mg/dL Calcium (8.5-10.3) mg/dL Phosphorus (2.5-5.0) mg/dL Magnesium 2.0 (1.7-2.3) mg/dL Total Bilirubin (0.2-1.0) mg/dL AST (10-42) IU/L ALT (10-60) IU/L Alkaline Phosphatase (42-121) IU/L Total Protein (6.4-8.9) g/dL Albumin (3.2-5.5) g/dL Globulin (2.1-4.2) g/dL Albumin/Globulin Ratio (1.0-2.2) Blood Type O POSITIVE Antibody Screen NEGATIVE Crossmatch IS Only See Detail Sepsis Event Note (H) - Evaluation Current Stage of Sepsis: Ruled out Assessment/Plan - Problem List (1) Acute respiratory failure with hypoxia Impression: His hypoxia was first noted in the outpatient infusion center where he was receiving his chronic magnesium infusion. A chest x-ray at that time apparently showed findings concerning for pulmonary edema and he was given 20 mg of IV Lasix. I am unable to view these results or images. In the emergency department prior to transfer (in [place], [place]) the CTA of the chest was negative for pulmonary embolism and showed clear lungs aside from a trace right pleural effusion and small left pleural effusion. These effusions are likely not large enough to cause any significant hypoxia. There are no groundglass opacities on the CT scan that would be concerning for pneumonitis (infectious versus organizing pneumonia versus other interstitial disorders), making those less likely as a cause. He has no fevers or cough as well. He does have significant peripheral edema in his lower extremities as well as upper extremit ies, thus fluid related issues are the most likely cause. He apparently had a normal echocardiogram in March 2023. -Continue supplemental oxygen. We will be setting him up for home oxygen with 2 L at rest and 3 to 4 L with exertion. -Will continue 40 mg IV Lasix today, then oral lasix 20 mg tomorrow. -TTE showed normal LVEF and valvular function. He had evidence of a PFO, but the report did not indicate how severe. Given his RVSP is normal at 27 mmHg, I do not suspect significant right to left shunting. -BNP elevated to 465. ESR slightly high at 25. Procalcitonin minimally elevated at 0.54. -Overall his presentation appears most consistent with volume overload; treat as noted below. Discontinued IV Vancomycin and Cefepime given lack of infectious issues at this time. -Spoke to [facility] ([phone]) to give them an update yesterday. -Overall plan at this time is home oxygen (being set up today) and diurese today after 1 unit PRBC. Hopeful for discharge tomorrow morning. (2) Acute diastolic congestive heart failure Impression: He denied having any issues with heart failure in the past and an echocardiogram in March 2023 showed a normal LVEF per written records obtained. He does note that for the past several months he has had worsening issues with fluid retention in his lower extremities as well as more recently in his upper extremities. He is not certain whether he has been gaining weight or stand the same. He denies any orthopnea or PND however. -TTE here showed an LVEF of 50% without any significant valvular pathology. He does have a PFO but given his normal right-sided pressures (RVSP 27 mmHg), it is unlikely that he has a significant right to left shunt. -Continue 40 mg IV Lasix daily today since he is received PRBC transfusion. Transition to 20 mg PO Lasix tomorrow. -Incentive spirometry. -Low-sodium diet and fluid restriction. Monitor daily weights and I&O's. (3) MDS (myelodysplastic syndrome) Impression: Initially started to develop anemia and thrombocytopenia in 2019 and ultimately underwent bone marrow biopsy in May 2022 which confirmed myelodysplastic syndrome. 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 He has remained transfusion dependent after the transplant likely due to ABO mismatch of patient blood with donor subtype, though this is favored to improve over time. -Transfuse for hemoglobin < 7 and platelet < 10,000. -Received 1 unit of PRBC on 09/29/23; will give an additional 1 unit PRBC today (hemoglobin 6.7). -Typically receives 20mg IV lasix with each unit of PRBC transfusion. -No signs of active bleeding at this time. -He has received his home immunosuppressant medications. Resume Jakafi, Cyclosporine, Prednisone, prophylactic posaconazole. 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 -His current anemia appears to be his baseline. I am unclear what his baseline thrombocytopenia typically looks like. -Transfuse for hemoglobin less than 7 or platelet count less than 10,000. Receiving 1 unit PRBC today as noted above (total of 2 unit PRBC this admission). -Daily CBC. 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 He was placed hide dose steroid therapy without significant improvement and he required addition of both Jakafi and cyclosporine. He is currently now on a prednisone taper after improving with therapy. -Continue prednisone on his outpatient taper. Also takes ursodiol for biliary support, will continue while hospitalized. -Resume home Jakafi and Cyclosporine, along with prophylactic medications. 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 -Resume pancrelipase supplementation with meals. (7) Bone marrow replaced by transplant Impression: Please see documentation noted above regarding his MDS, btkek-okktpl-hddt disease and pancytopenia. (8) Prostate cancer Impression: Has a history of BPH with urinary obstruction and previously on Flomax but this was held in the setting of orthostasis and hypotension. He also has a history of prostate cancer (T1c, PSA 5.3, [place] 3+3) and he has opted for active surveillance. -Monitor for urinary retention but otherwise no acute issues at this time. -Discontinue fajardo catheter today to ensure he can urinate prior to discharge. (9) Hypomagnesemia Impression: Currently requires intermittent outpatient infusions of magnesium. -Check magnesium level daily and supplement if necessary. -Has been avoiding oral magnesium supplementation due to oral supplements causing diarrhea, which would worsen his gut GVHD. 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 -No acute issues at this time. (11) Orthostasis Impression: Currently on midodrine therapy for intermittent orthostasis. -Resume oral midodrine. (12) RAVIN (obstructive sleep apnea) Impression: Has been recommended to use CPAP in the past however he does not use this currently as he typically sleeps on his side which decreases his sleep apnea. -Monitor for now.
[2023-10-01] MEDS: CYCLOSPORINE 100 MG PO SCH (20:26)
[2023-10-01] MEDS: CYCLOSPORINE 25 MG PO SCH (20:26)
[2023-10-02 07:20] LABS: EOSINOPHILS % (AUTO) 0.6 %; HCT - HEMATOCRIT 22.2 % (42.0-52.0); HGB - HEMOGLOBIN 7.6 g/dL (14.0-18.0); LYMPHOCYTES % (AUTO) 9.8 %; MEAN CORPUSCULAR HEMOGLOBIN 31.8 pg (27.0-31.0); MEAN CORPUSCULAR HGB CONC 34.2 g/dL (32.0-36.0); MEAN CORPUSCULAR VOLUME 92.9 fL (80.0-94.0); MEAN PLATELET VOLUME 11.9 fL (7.4-11.4); MONOCYTES % (AUTO) 22.1 %; NEUTROPHILS % (AUTO) 64.4 %; PLT - PLATELET COUNT 58 10^3/uL (130-450); RED BLOOD COUNT 2.39 10^6/uL (4.70-6.10)
[2023-10-02 07:33] LABS: ABNORMAL LYMPHS % (MANUAL) 0 %; WHITE BLOOD COUNT 1.6 x10^3/uL (4.8-10.8)
[2023-10-02 07:47] LABS: ALBUMIN 2.1 g/dL (3.2-5.5); ALBUMIN/GLOBULIN RATIO 1.6 (1.0-2.2); CALCIUM 7.9 mg/dL (8.5-10.3); CREATININE 0.7 mg/dL (0.6-1.3); POTASSIUM 3.5 mmol/L (3.5-4.5); TOTAL PROTEIN 3.4 g/dL (6.4-8.9)
[2023-10-02 07:53] LABS: BAND NEUTROPHILS % (MANUAL) 2 %; DIFFERENTIAL COMMENT MANUAL DIFFERENTIAL; LYMPHOCYTES # (MANUAL) 0.1 10^3/uL (1.5-3.5); LYMPHOCYTES % (MANUAL) 8 %; METAMYELOCYTES % (MANUAL) 2 %; MONOCYTES # (MANUAL) 0.3 10^3/uL (0.0-1.0); MYELOCYTES % (MANUAL) 1 %; NEUTROPHILS # (MANUAL) 1.1 10^3/uL (1.5-6.6); NUCLEATED RBC (MANUAL) 3 %; PLATELET ESTIMATE, MANUAL DECREASED (<130,000) (NORMAL); PLATELET MORPHOLOGY NORMAL APPEARANCE (NORMAL); RBC MORPHOLOGY (MULTIPLE) NORMAL APPEARANCE (NORMAL); WBC MORPHOLOGY (MULTIPLE) NORMAL APPEARANCE (NORMAL)
--- NOTE | 2023-10-02 07:56 | Discharge Plan ---
Discharge Plan Problem Reviewed?: Yes Disposition: Home, Self Care Condition: Stable Prescriptions: Furosemide [Lasix] 20 mg PO DAILY 30 Days #30 tab Diet: Cardiac Activity Restrictions: No Restrictions Shower Restrictions: No Driving Restrictions: No Assistance Devices: Walker Weight Bearing: Full Weight Health Concerns: You were admitted to our hospital after developing hypoxia, which is another term for a low amount of oxygen in your blood. You required supplemental oxygen to be given to you through your mouth and nose initially, however with the treatment outlined below you improved while hospitalized and did not require oxygen at the time of discharge. Prior to arrival in our hospital you did undergo a CT scan of your chest that was negative for a blood clot in your lung and showed no problems with the lung tissue such as pneumonia, scarring or inflammation. You had evidence of fluid overload, something that we call acute congestive heart failure, which means that you have excess fluid on your body. You had noticed this mainly in your arms and legs, with significant swelling showing up over the past several weeks to months. When you have extra fluid on your body, such as in your case, sometimes your blood oxygen level gets low and you need extra oxygen supply to you. We gave you a medication called furosemide (lasix) through the IV which helped you to urinate out the excess fluid, which improved the swelling in your extremities and allowed you to get off of oxygen therapy. An ultrasound of your heart showed that your heart was was pumping at 50%, which anything 50% or higher is considered normal. Sometimes people can get the extra fluid on the body when you have chronic illnesses, which in your case would be the medical issues revolving around your bone marrow transplant for your myelodysplastic syndrome. You are being prescribed oral furosemide (lasix) to be taken every day to help keep the fluid off of your body and help prevent you from needing oxygen in the future. You should discuss your health with Dr. Gustafson during your appointment on Thursday. If you start feeling short of breath, dizzy, confused, develop chest pain or any other concerning symptoms, please seek immediate medical attention. Try to eat a lower sodium diet, which helps to keep fluid off of your body. While you were hospitalized you did receive 2 units of blood as your blood count was less than 7 on two separate days. Each time you received a unit of blood, your blood count responded appropriately and there was no sign of bleeding. The need for blood transfusion was due to your history of MDS and bone marrow transplant. You had no evidence of any infection during your stay and cultures of your blood were negative for any bacteria. Should you develop fevers at home however please contact your providers or seek immediate medical attention. Plan of Treatment: No changes were made to your chronic/home medications. Please continue taking your Prednisone on the taper that your Hematology/Oncology providers had previously given you. NEW MEDICATION: 1. Furosemide (Lasix) 20 mg tablet. Please take one tablet by mouth once daily, starting tomorrow 10/03/23. -It is usually best to take this in the morning since it will make you urinate frequently, but be sure to take it when you know you can make it to a bathroom easily. Additional Instructions or Follow Up instructions: You already have a follow up visit scheduled with Dr. Gustafson on Thursday10/05/23. Please keep this appointment and review your recent hospitalization with Dr. Gustafson. No Smoking: If you smoke, Please STOP! Call for help.
[2023-10-02] MEDS: predniSONE 5 MG TABLET PO SCH (08:09)
[2023-10-02] MEDS: FUROSEMIDE 20 MG TABLET PO SCH (08:19)
--- NOTE | 2023-10-02 08:22 | DISCHARGE SUMMARY ---
"Discharge Summary Admit Date: 09/29/23 Discharge Date: 10/02/23 Discharging Provider: Nick Alatorre MD Primary Care Provider: Jose Gustafson MD Code Status: Attempt Resuscitation Condition at Discharge: Stable Discharge Disposition: 01 Home, Self Care - DIAGNOSES Admission Diagnoses: Acute Respiratory Failure with Hypoxia Discharge Diagnoses with Status of Each Condition: 1. Acute Hypoxic Respiratory Failure - resolved 2. Acute HFpEF - improved 3. SANDRA - resolved, likely cardiorenal 4. Lactic Acidosis - resolved, likely hypoxia related 5. Bilateral Pleural Effusion (small left, trivial right) - improved 6. PFO - stable 7. Pancytopenia - stable, required 2 unit PRBC transfusion 8. 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 Pancreatic Insufficiency - stable 11. Hypogammaglobulinemia - stable 12. Orthostatic Hypotension, Chronic - stable 13. Prostate Cancer - stable 14. Hypomagnesemia, Chronic - stable 15. RAVIN, not on CPAP - stable - HPI History of Present Illness: Mr. Cornelius is a 78 year old gentleman with history of prostate cancer (T1c, PSA 5.3, [place] 3+3) along with MDS s/p BMT May 19, 2023 who presents with shortness of breath and hypoxia. He currently follows with Dr. Gustafson of [facility] in [place] for hematology/oncology and also follows closely with the [facility] after his bone marrow transplant. 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 His posttransplant course was complicated by acute gut flyzy-mavvam-blfq disease requiring high-dose prednisone and immunosuppression with Jakafi and cyclosporine. 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 On August 27 he also had an IgG level of 218 thus was given IVIG at that time. He does have chronic orthostasis requiring midodrine as well. He currently is on a prolonged prednisone taper for his acute gut GVHD, along with Jakafi and cyclosporine for immunosuppression. His current issue started recently when he was at his outpatient infusion center yesterday to receive an IV magnesium infusion. There he started to develop mild shortness of breath and was noted to be hypoxic in the 80s. Per documentation, a chest x-ray at the infusion center was concerning for fluid overload and he was given IV Lasix 20 mg. He required 3 L of oxygen to maintain saturation of 88 to 90%. There were plans to obtain home oxygen at that time, [place] and supplies were not deliverable in a rapid manner. He was sent to the emergency department for further evaluation. At the [facility] Emergency Department in Thursday, he was noted to be a febrile with normal vital signs aside from requiring 4 L of oxygen to maintain appropriate saturations. His lactic acid was noted to be elevated to 4.6 and he was given IV fluids with improvement of his lactic acid to normal. His labs showed a creatinine of 1.47 with a CO2 of 17 and an anion gap of 16. His WBC was 2.6, hemoglobin 6.2, platelet count 12. His COVID, RSV and influenza testing were negative. A CT of his abdomen showed small pockets of fluid consistent with trace ascites but was not large enough for sampling. A CTA of his chest showed no evidence for pulmonary embolism and the lungs were clear bilaterally with a small left pleural effusion and trace right pleural effusion. Because of his lactic acidosis he was given empiric IV vancomycin and cefepime, though there was no obvious infectious source. As they were unable to secure home oxygen therapy on the [place], he was transferred to [facility] for further care and management. On presentation, he was on 6 liters oxygen via Oxymask. - CONSULTS | PROCEDURES Consultations: None - case was discussed with the [facility] - HOSPITAL COURSE Hospital Course: SUMMARY NOTE FOR HOSPITALIZATION After admission to our facility the patient remained on 6 L oxygen via oxymask, saturating approximately 92% on that and was unable to be weaned further. Review of his CTA chest performed prior to transfer showed no parenchymal pathology in his lungs that would indicate infection, pneumonitis or suosb-atypoz-eelu disease. He had a small left pleural effusion and a trivial right pleural effusion, however they were not large enough for sampling and not large enough to be the cause of his hypoxia. He was noted to be anemic to 6.2 prior to transfer which was repeated and found to be 6.9 on arrival. He did receive 1 unit PRBC at the time of admission, however that did not affect his oxygenation. Despite his hypoxia he was relatively asymptomatic without any significant complaints, though his exam showed anasarca with significant lower extremity peripheral edema along with 2+ pitting edema of both his upper extremities. The CT scan of his abdomen/pelvis performed prior to transfer showed trace pockets of ascites, but these were too small for sampling as well. Overall his clinical scenario appears to be acute hypoxic respiratory failure secondary to fluid overload. An echocardiogram was obtained that showed normal left ventricular size and function with an LVEF of 50% along with normal right ventricular size and function and normal pulmonary pressures. He did have a PFO noted based on a positive bubble study, though it did not appear to have qbzda-cr-nznp shunting. He was diuresed with 40 mg IV Lasix once daily and over 3 days put out 8 L of urine which ultimately led to resolution of his hypoxia. A road test by respiratory therapy indicated oxygen saturations of 94% on room air at rest which increased to 97% on room air with exertion, and he was able to ambulate 400 feet using his home walker without any weakness, unsteady gait or dyspnea on exertion. He was discharged with a new prescription for 20 mg of oral Lasix to be taken daily -he was given a 30-day prescription for this, which can be reassessed as an outpatient. He was noted to have a lactic acidosis with a lactic acid of 4.1 prior to transfer but this improved with oxygen therapy and IV fluids prior to arrival at our facility. He was initially on IV vancomycin and cefepime for empiric cov erage, however he had no infectious symptoms and blood cultures remain negative with a negative procalcitonin. As noted above his CT scans of his chest and abdomen showed no inflammatory or infectious etiology and his urinalysis was negative for infection. His IV antibiotics were discontinued and he was not given any antibiotic therapy at discharge. His lactic acidosis was ultimately felt to be secondary to hypoxia prior to arrival in the emergency department. He was also noted to have acute kidney injury with a creatinine of 1.47 prior to transfer but with IV diuresis his creatinine improved to his baseline 0.7-0.8 prior to discharge. It was felt that this was secondary to cardiorenal syndrome. The CT of his abdomen showed no evidence of hydronephrosis, thus a renal ultrasound was not obtained. For his myelodysplastic syndrome status post BMT with continued pancytopenia requiring intermittent transfusions as an outpatient due to host-donor ABO mismatch, along with GVHD, we initially had problems obtaining his immunosuppressant medications [place] they did not travel with him to our facility. Unfortunately he did go 2 days without his home Jakafi, cyclosporine, posaconazole, dapsone until he was able to have a friend get into his house and [place] his medications [place] He was able to resume his home medications without any issue at that point. During his stay he did require 2 unit PRBC transfusion of irradiated, CMV-negative blood, one on his first day of admission and one on day three. He had no evidence of bleeding complications and it was felt to be secondary to his underlying hematologic issues. He was ultimately discharged in stable and improved condition, without need for home health or home oxygen. He will be following up with Dr. Gustafson in Hem atology/Oncology on Thursday10/05/2023. NEW MEDICATIONS: (home medications were not changed) 1. Furosemide 20 mg once daily HOSPITAL COURSE BY PROBLEMS (1) Acute respiratory failure with hypoxia Impression: His hypoxia was first noted in the outpatient infusion center where he was receiving his chronic magnesium infusion. A chest x-ray at that time apparently showed findings concerning for pulmonary edema and he was given 20 mg of IV Lasix. I am unable to view these results or images. In the emergency department prior to transfer (in [place], [place]) the CTA of the chest was negative for pulmonary embolism and showed clear lungs aside from a trace right pleural effusion and small left pleural effusion. These effusions are likely not large enough to cause any significant hypoxia. There are no groundglass opacities on the CT scan that would be concerning for pneumonitis (infectious versus organizing pneumonia versus other interstitial disorders), making those less likely as a cause. He has no fevers or cough as well. He does have significant peripheral edema in his lower extremities as well as upper extremities, thus fluid related issues are the most likely cause. He apparently had a normal echocardiogram in March 2023. -Successfully weaned from oxygen and does not require home oxygen therapy. -Transition to 20 mg oral lasix today. -TTE showed normal LVEF and valvular function. He had evidence of a PFO, but the report did not indicate how severe. Given his RVSP is normal at 27 mmHg, I do not suspect significant right to left shunting. -BNP elevated to 465. ESR slightly high at 25. Procalcitonin minimally elevated at 0.54. -Overall his presentation appears most consistent with volume overload; treat as noted below. Discontinued IV Vancomycin and Cefepime given lack of infectious issues at this time. -Spoke to [facility] ([phone]) to give them an update yesterday. (2) Acute diastolic congestive heart failure Impression: He denied having any issues with heart failure in the past and an echocardiogram in March 2023 showed a normal LVEF per written records obtained. He does note that for the past several months he has had worsening issues with fluid retention in his lower extremities as well as more recently in his upper extremities. He is not certain whether he has been gaining weight or staying the same. He denies any orthopnea or PND however. -TTE here showed an LVEF of 50% without any significant valvular pathology. He does have a PFO but given his normal right-sided pressures (RVSP 27 mmHg), it is unlikely that he has a significant right to left shunt. -Received 40 mg IV Lasix daily while hospitalized. Transition to 20 mg PO Lasix today. -Incentive spirometry. -Low-sodium diet and fluid restriction. Monitor daily weights and I&O's. -Hypoalbuminemia (albumin 2.1) contributing significantly as well. (3) MDS (myelodysplastic syndrome) Impression: Initially started to develop anemia and thrombocytopenia in 2019 and ultimately underwent bone marrow biopsy in May 2022 which confirmed myelodysplastic syndrome. 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 His course was complicated by acute GVHD of his gut as well as skin as noted below (skin GVHD resolved; gut GVHD is being treated). He has remained transfusion dep endent after the transplant likely due to ABO mismatch of patient blood with donor subtype, though this is favored to improve over time. -Transfuse for hemoglobin < 7 and platelet < 10,000. -Received 1 unit of PRBC on 09/29/23; 1 unit PRBC 10/01/23. Total of 2 unit PRBC. -Typically receives 20mg IV lasix with each unit of PRBC transfusion. -No signs of active bleeding at this time. -He has received his home immunosuppressant medications. Resume Jakafi, Cyclosporine, Prednisone, prophylactic posaconazole. 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 -His current anemia appears to be his baseline. I am unclear what his baseline thrombocytopenia typically looks like. -Transfuse for hemoglobin less than 7 or platelet count less than 10,000. Received total of 2 unit PRBC this admission of leukoreduced, irradiated and CMV negative blood. -Daily CBC. 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 In June 2023 he developed with anorexia, weight loss and diarrhea and ultimately underwent EGD with biopsy showing moderate to severe graft-versus- host disease in the duodenum and severe jvege-szfiyh-pinm disease in the stomach and colon. He was placed high dose steroid therapy without significant improvement and he required addition of both Jakafi and cyclosporine. He is currently now on a prednisone taper after improving with therapy. -Continue prednisone on his outpatient taper. Also takes ursodiol for biliary support, will continue while hospitalized. -Resume home Jakafi and Cyclosporine, along with prophylactic medications. Mis sed two days of these medications as there [place] 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 -Continue pancrelipase supplementation with meals. (7) Bone marrow replaced by transplant Impression: Please see documentation noted above regarding his MDS, rygpd-iwoqbl-pzol disease and pancytopenia. (8) Prostate cancer Impression: Has a history of BPH with urinary obstruction and previously on Flomax but this was held in the setting of orthostasis and hypotension. He also has a history of prostate cancer (T1c, PSA 5.3, [place] 3+3) and he has opted for active surveillance. -Monitor for urinary retention but otherwise no acute issues at this time. (9) Hypomagnesemia Impression: Currently requires intermittent outpatient infusions of magnesium. -Has been avoiding oral magnesium supplementation due to oral supplements causing diarrhea, which would worsen his gut GVHD. -Received intermittent IV magnesium sulfate infusions while hospitalized. 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 -No acute issues at this time. (11) Orthostasis Impression: Currently on midodrine therapy for intermittent orthostasis. -Continue home oral midodrine. (12) RAVIN (obstructive sleep apnea) Impression: Has been recommended to use CPAP in the past however he does not use this currently as he typically sleeps on his side which decreases his sleep apnea. -Monitor for now. - ALLERGIES Allergies/Adverse Reactions: Allergies Allergy/AdvReac Type Severity Reaction Status Date / Time No Known Drug Allergies Allergy Verified 09/29/23 02:15 - MEDICATIONS Home Medications: Ambulatory Orders Medication Instructions Recorded Confirmed Budesonide [Budesonide EC] 3 mg PO BIDWM 09/29/23 09/29/23 Calcium Citrate/Vitamin D3 1 each PO BID 09/29/23 09/29/23 [Citracal + D Maximum Caplet] Cyclosporine, Modified 25 mg PO BID 09/29/23 09/29/23 [Cyclosporine Modified] Cyclosporine, Modified 100 mg PO BID 09/29/23 09/29/23 [Cyclosporine Modified] Dapsone 50 mg PO BID 09/29/23 09/29/23 Lipase/Protease/Amylase [Creon Dr 1 each PO TIDWM 09/29/23 09/29/23 36,000 Unit Capsule] Midodrine HCl 5 mg PO TID 09/29/23 09/29/23 Multivitamin 1 each PO DAILY 09/29/23 09/29/23 Non Formulary 1 each PO ACHS 09/29/23 09/29/23 Omeprazole 40 mg PO DAILY PRN 09/29/23 09/29/23 Posaconazole [Noxafil] 300 mg PO DAILYWM 09/29/23 09/29/23 Ruxolitinib Phosphate [Jakafi] 5 mg PO BID 09/29/23 09/29/23 Ursodiol [Angelica] 500 mg PO BID 09/29/23 09/29/23 predniSONE [Deltasone] 1 - 3 tab PO UD 09/29/23 09/29/23 valACYclovir [Valtrex] 500 mg PO BID 09/29/23 09/29/23 Furosemide [Lasix] 20 mg PO DAILY 30 Days #30 tab 10/02/23 - PHYSICAL EXAM AT DISCHARGE General Appearance: positive: No acute distress, Alert, Mild distress Eyes Bilateral: positive: Normal inspection, PERRL, EOMI ENT: positive: ENT inspection nml, Pharynx nml, No signs of dehydration Neck: positive: Nml inspection, Thyroid nml, No JVD, Trachea midline Respiratory: positive: Chest non-tender, No respiratory distress, Breath sounds nml. negative: Wheezes, Rales, Rhonchi Cardiovascular: positive: Regular rate & rhythm, No murmur, No gallop Abdomen: positive: Non-tender, No organomegaly, Nml bowel sounds, No distention Back: positive: Nml inspection Skin: positive: No rash, Warm, Dry, Pallor Extremities: positive: Non-tender, Pedal edema (Still with 2+ lower extremity edema (improved from 4+ on admission). Upper extremity edema resolved (was 2+ on admission). ) Neurologic/Psychiatric: positive: Oriented x3, CN's nml (2-12), Motor nml, Sensation nml - LABS Result Diagrams: 10/02/23 06:55 10/02/23 06:55 Other Lab Results: Blood cultures (09/29/23): NGTD x 2 days in all four cultures BNP 465 (09/29/23) WBC 1.6 and ANC 1.1 (10/02/23) Total Protein 3.2, Albumin 2.1 ESR 25, CRP 39.9, Procalcitonin 0.54 (09/29/23) - DIAGNOSTIC IMAGING Diagnostic Imaging Results Comments: ECHOCARDIOGRAM (09/29/2023): 1. Normal left ventricular size and function, EF 50%. The left atrium is not well-seen. 2. Normal right ventricular size and function. Normal pulmonary pressure. RVSP is 27 mmHg. 3. Mild mitral annular calcification with normal valve function throughout. 4. A PFO is suspected based on positive bubble study. CTA Chest (09/28/2023; [place] [facility]): 1. No evidence of pulmonary embolism bilaterally. 2. The lungs are clear bilaterally. Small left pleural effusion and trace right pleural effusion are present. 3. Small volume ascites is present in the upper abdomen. CT Abdomen/Pelvis w/o Contrast (09/28/2023; [place] [facility]): 1. Small pockets of fluid are present adjacent to the liver, spleen, and deep within the pelvis. The small volumes of fluid are likely inaccessible to paracentesis. 2. A small left pleural effusion is present. 3. The prostate measures up to 5.4 cm in size. ECG: per my read - NSR, HR 70, normal axis and intervals, no pathologic Q-waves, no ischemic ST-TW changes, occasional PVCs. - SEPSIS Current Stage of Sepsis: Ruled out"
[2023-10-02 08:44] VITALS: BP 123/66; O2SAT 94
[2023-10-04] MEDS ORDERED: predniSONE 5 MG TABLET PO SCH (08:00)
== END 2023-10-02 09:48 | disposition home or self-care (01) | DRG 189 ==
LOC: ICU 09-29 00:41 → MS2 10-01 14:54
PROVIDERS: ADMIT Hospitalist; ATTEND Hospitalist
PROC: 30233N1 Transfusion of Nonautologous Red Blood Cells into Peripheral Vein, Percutaneous Approach (ICD-10-PCS; principal; 2023-09-29)
DX: J96.01 Acute respiratory failure with hypoxia (principal); I50.31 Acute diastolic (congestive) heart failure; N17.9 Acute kidney failure, unspecified; E87.20 Acidosis, unspecified; J90 Pleural effusion, not elsewhere classified; Q21.12 Patent foramen ovale; D61.818 Other pancytopenia; D89.811 Chronic graft-versus-host disease; D80.1 Nonfamilial hypogammaglobulinemia; I13.0 Hypertensive heart and chronic kidney disease with heart failure and stage 1 through stage 4 chronic kidney disease, or unspecified chronic kidney disease; T86.09 Other complications of bone marrow transplant; D46.9 Myelodysplastic syndrome, unspecified; K86.89 Other specified diseases of pancreas; I95.1 Orthostatic hypotension; C61 Malignant neoplasm of prostate; E83.42 Hypomagnesemia; G47.33 Obstructive sleep apnea (adult) (pediatric); N18.9 Chronic kidney disease, unspecified; M48.02 Spinal stenosis, cervical region
CPT/HCPCS: 36415; 71046; 80048; 80053; 82330; 83735; 83880; 84100; 84132; 84145; 84484; 85025; 85610; 85651; 86140; 86850; 86900; 86901; 86920; 87040; 87150; 93307; 94761; A9270; J3370; J7040; J7512; P9037; P9040